=== PATIENT | female | born 1955 | race African-American/Black ===

== ENCOUNTER 2024-06-19 11:59 | Emergency (ER) | payer MEDICAID, OTHER ==
[~2024-06-19] VITALS: Ht 162.6 cm; Wt 65.0 kg
[~2024-06-19 11:59] MED LIST: ENALAPRIL; GABAPENTIN; HYDROCHLOROTHIAZIDE
[2024-06-19 12:01] VITALS: TEMP 36.9
[2024-06-19] MEDS ORDERED: ONDANSETRON HCL 4MG/2ML INJ IV ONE (13:15)
[2024-06-19] MEDS ORDERED: KETOROLAC 15MG/ML VIAL IV ONE (13:15)
[2024-06-19] MEDS ORDERED: DEXAMETHASONE 4MG/ML 1ML VIAL IV ONE (13:15)
[2024-06-19 13:28] VITALS: PULSE 70; RESP 20; O2SAT 99
[2024-06-19] MEDS: IPRATROPIUM/ALBUTEROL 0.5-3(2.5)MG/3ML NEB HHN ONE (13:28)
[2024-06-19 16:48] LABS: BASOPHILS % 0.6 % (0.0-2.0); EOSINOPHILS % 1.1 % (0.0-5.0); HEMATOCRIT. 42.5 % (36.0-48.0); HEMOGLOBIN. 13.9 g/dL (12.0-16.0); LYMPHOCYTES % 16.4 % (20.0-50.0); MEAN CORPUSCULAR HEMOGLOBIN 31.3 pg (28.0-32.0); MEAN CORPUSCULAR HGB CONC 32.8 g/dL (31.0-37.0); MEAN CORPUSCULAR VOLUME 95.3 fL (81.0-99.0); MEAN PLATELET VOLUME 9.2 fl (7.4-10.4); MONOCYTES % 6.6 % (2.0-8.0); NEUTROPHILS % 75.3 % (40.0-76.0); PLATELET 144 x1000/uL (130-400); RED BLOOD CELL COUNT 4.46 mill/uL (4.2-5.4); RED CELL DISTRIBUTION WIDTH 15.4 % (11.6-14.6); WHITE BLOOD COUNT 8.6 x1000/uL (4.5-11.0)
[2024-06-19 16:53] VITALS: BP 150/88; PULSE 70; RESP 20
[2024-06-19 16:53] LABS: CHLORIDE 103 mEq/L (98-107); POTASSIUM 4.3 mEq/L (3.5-5.1); SODIUM 140 mEq/L (136-145)
[2024-06-19] MEDS: KETOROLAC 15MG/ML VIAL IV NR (16:53)
[2024-06-19] MEDS: SODIUM CHLORIDE 0.9% 1,000 ML IV ONE (16:53)
[2024-06-19] MEDS: DEXAMETHASONE 10 MG/ML VIAL IV NR (16:53)
[2024-06-19 16:54] LABS: CALCIUM 9.5 mg/dL (8.7-10.4); CARBON DIOXIDE 28 mEq/L (21-32)
[2024-06-19] MEDS: ONDANSETRON HCL 4MG/2ML INJ IV NR (16:54)
[2024-06-19 16:59] LABS: CREATININE 0.9 mg/dL (0.6-1.0); GLUCOSE 87 mg/dL (70-105); UREA NITROGEN BLOOD 7 mg/dL (9-23)
[2024-06-19 17:00] LABS: TROPONIN I HIGH SENSITIVITY < 4 ng/L (3.0-34)
[2024-06-19 17:01] LABS: ALANINE AMINOTRANSFERASE 10 IU/L (10-49); ALBUMIN 3.6 g/dL (3.2-4.8); ASPARTATE AMINOTRANSFERASE 20 IU/L (<34)
[2024-06-19 17:02] LABS: BILIRUBIN TOTAL 0.4 mg/dL (0.1-1.0); PROTEIN TOTAL 6.3 g/dL (6.0-8.3)
[2024-06-19] MEDS ORDERED: BROM118S47 PO (18:25)
[2024-06-19] MEDS ORDERED: AZIT250T12 MT (18:25)
[2024-06-19] MEDS ORDERED: ALBU90AE INH (18:25)
== END 2024-06-19 19:11 | disposition home or self-care (01) ==
LOC: ER 13:00
DX: J01.90 Acute sinusitis, unspecified (principal); J02.8 Acute pharyngitis due to other specified organisms; I10 Essential (primary) hypertension
CPT/HCPCS: 99284; 94070; 96374; 96375; 71045; 96361; 80053; 83880; 85025; 84484; 36415; 94640; J1885; J1100; J2405; J7030